=== PATIENT | female | born 1950 | race American Indian/Alaskan Native ===

== ENCOUNTER 2019-11-11 20:18 | Observation (INO) | payer MEDICARE ==
--- NOTE | 2019-11-11 20:52 | Emergency Department Report ---
ED Shortness of Breath HPI - General Chief Complaint: Dyspnea/Respdistress Stated Complaint: SOB Time Seen by Provider: 11/11/19 20:30 Source: patient Mode of arrival: Ambulatory Limitations: No Limitations - History of Present Illness Initial Comments: Patient is a 69-year-old female that presents emergency room with complaints of shortness of breath. Patient states her shortness of breath started today. Patient states she is not having any chest pain. Patient states her shortness of breath is better with rest and worse with exertion. Patient states she is having difficulty catching her breath. Patient states she does smoke. They states she smokes 1 pack/day. Patient states that she does not have a history of COPD or CHF but has a history of asthma. Patient states she has had open heart surgery for a bypass. Patient denies fever chills. Patient complains of mild cough. Patient complains of mild wheezing. Patient denies recent travel. Patient denies recent international travel. Patient denies exposure to the novel coronavirus. Patient denies sick contacts. Patient denies fever and chills. Patient denies diarrhea. Patient denies coming in contact with anybody with symptoms of the novel coronavirus. MD Complaint: shortness of breath -: Sudden Severity: severe Consistency: constant Improves With: rest Worsens With: exertion, movement, inspiration Known History Of: asthma, diabetes Associated Symptoms: cough Treatments Prior to Arrival: none - Related Data Home Oxygen Therapy: No Allergies Allergy/AdvReac Type Severity Reaction Status Date / Time No Known Allergies Allergy Unverified 11/11/19 20:30 ED Review of Systems ROS: Stated complaint: SOB Other details as noted in HPI Constitutional: denies: chills, fever Eyes: denies: eye pain, eye discharge, vision change ENT: denies: ear pain, throat pain Respiratory: cough, shortness of breath, SOB with exertion, SOB at rest, wheezing Cardiovascular: denies: chest pain, palpitations Endocrine: no symptoms reported Gastrointestinal: denies: abdominal pain, nausea, diarrhea Genitourinary: denies: urgency, dysuria, discharge Musculoskeletal: denies: back pain, joint swelling, arthralgia Skin: denies: rash, lesions Neurological: denies: headache, weakness, paresthesias Psychiatric: denies: anxiety, depression Hematological/Lymphatic: denies: easy bleeding, easy bruising ED Past Medical Hx - Past Medical History Previous Medical History?: Yes Hx Hypertension: Yes Hx CVA: No Hx Congestive Heart Failure: No Hx Diabetes: Yes Hx Asthma: Yes - Surgical History Past Surgical History?: Yes Hx Open Heart Surgery: Yes - Family History Family history: no significant - Social History Smoking Status: Current Every Day Smoker Substance Use Type: None ED Physical Exam - General Limitations: No Limitations General appearance: alert, in distress - Head Head exam: Present: atraumatic, normocephalic - Eye Eye exam: Present: normal appearance - ENT ENT exam: Present: mucous membranes moist - Neck Neck exam: Present: normal inspection - Respiratory Respiratory exam: Present: respiratory distress, wheezes, decreased breath sounds - Cardiovascular Cardiovascular Exam: Present: regular rate, normal rhythm. Absent: systolic murmur, diastolic murmur, rubs, gallop - GI/Abdominal GI/Abdominal exam: Present: soft, normal bowel sounds - Extremities Exam Extremities exam: Present: normal inspection - Back Exam Back exam: Present: normal inspection - Neurological Exam Neurological exam: Present: alert, oriented X3 - Psychiatric Psychiatric exam: Present: normal affect, normal mood - Skin Skin exam: Present: warm, dry, intact, normal color. Absent: rash ED Course Vital Signs 11/11/19 11/11/19 11/11/19 20:26 20:30 20:31 Temperature 98.4 F Pulse Rate 90 87 Pulse Rate [ Bilateral] Respiratory 21 20 Rate Respiratory Rate [Bilateral ] Blood Pressure 169/99 Blood Pressure 169/99 [Left] O2 Sat by Pulse 99 96 97 Oximetry 11/11/19 11/11/19 11/11/19 20:45 21:00 21:15 Temperature Pulse Rate 82 89 82 Pulse Rate [ Bilateral] Respiratory 20 22 21 Rate Respiratory Rate [Bilateral ] Blood Pressure 166/104 180/87 Blood Pressure [Left] O2 Sat by Pulse 95 94 95 Oximetry 11/11/19 11/11/19 11/11/19 21:30 21:37 21:46 Temperature Pulse Rate 82 62 Pulse Rate [ 66 Bilateral] Respiratory 16 21 Rate Respiratory 22 Rate [Bilateral ] Blood Pressure 168/66 157/74 Blood Pressure [Left] O2 Sat by Pulse 94 96 Oximetry - Reevaluation(s) Reevaluation #1: Patient states she is feeling better. Patient's wheezing has resolved. P atient's lung sounds are clear. Patient's stable on 2 L of oxygen. 11/11/19 21:28 Reevaluation #2: I discussed all results with patient. I discussed plan of care with patient. Patient agrees with plan of care and admission. Patient to be admitted to the hospitalist service. Patient states that she would like a Percocet for her lower back pain. Patient states she takes Percocet at home for her chronic back pain 11/11/19 22:28 - Consultations Consultation #1: Hospitalist consulted for admission. Hospitalist to admit patient. Bridge orders placed. 11/11/19 22:27 ED Medical Decision Making - Lab Data Result diagrams: 11/11/19 20:52 11/11/19 20:52 - EKG Data -: EKG Interpreted by Me EKG shows normal: sinus rhythm, axis, intervals, QRS complexes, ST-T waves Rate: normal - Radiology Data Radiology results: report reviewed, image reviewed CHEST 1 VIEW 11/11/2019 8:22 PM INDICATION / CLINICAL INFORMATION: Dyspnea. COMPARISON: None available. FINDINGS: SUPPORT DEVICES: None. HEART / MEDIASTINUM: Sternotomy and CABG. LUNGS / PLEURA: No significant pulmonary or pleural abnormality. No pneumothorax. ADDITIONAL FINDINGS: No significant additional findings. IMPRESSION: 1. No acute findings. - Medical Decision Making Patient is a 69-year-old female that presents emergency room complaints of shortness of breath. Patient has a history of asthma and smoking. Patient on initial exam found to have respiratory distress along with wheezing. Patient given duo nebs magnesium and Solu-Medrol and her respiratory status improved. Patient also found to be hypoxic and placed on oxygen and her O2 improved. Patient's initial oxygen saturation was 92%. Patient at 97-98% with 2 L of oxygen. Patient's labs unremarkable. Patient's chest x-ray is negative for acute findings or pneumonia. Patient's EKG is negative for acute finding. - Differential Diagnosis Asthma exacerbation, status asthmaticus, COPD, ACS, CHF Critical Care Time: Yes Critical care time in (mins) excluding proc time.: 35 Critical care attestation.: If time is entered above; I have spent that time in minutes in the direct care of this critically ill patient, excluding procedure time. Critical Care Time: 35 minutes ED Disposition Clinical Impression: SOB (shortness of breath), Hypoxia Status asthmaticus Qualifiers: Asthma severity: severe Asthma persistence: unspecified Qualified Code(s): J45.902 - Unspecified asthma with status asthmaticus Disposition: 09 OP ADMIT IP TO THIS HOSP Is pt being admited?: Yes Does the pt Need Aspirin: No Condition: Critical Time of Disposition: 22:27
[2019-11-11] MEDS ORDERED: IPRATROPIUM/ALBUTEROL SULFATE 3 ML AMPUL.NEB IH ONE (20:57)
[2019-11-11] MEDS ORDERED: methylPREDNISolone Sod Succinate 125 MG/2 ML INJ IV ONE (20:57)
[2019-11-11] MEDS ORDERED: MAGNESIUM SULFATE 2 GM/50 ML BAG IV ONE (20:58)
[2019-11-11 21:12] LABS: Basophils # (Auto) 0.1 K/mm3 (0.0-0.1); Basophils % (Auto) 1.6 % (0.0-1.8); Eosinophils # (Auto) 0.4 K/mm3 (0.0-0.4); Eosinophils % (Auto) 4.6 % (0.0-4.3); Hematocrit 36.6 % (30.3-42.9); Hemoglobin 11.9 gm/dl (10.1-14.3); Lymphocytes % (Auto) 36.5 % (13.4-35.0); Mean Corpuscular HGB Conc 33 % (30-34); Mean Corpuscular Volume 81 fl (79-97); Monocytes # (Auto) 0.5 K/mm3 (0.0-0.8); Monocytes % (Auto) 6.4 % (0.0-7.3); Platelet Count 245 K/mm3 (140-440); Red Blood Count 4.52 M/mm3 (3.65-5.03); Red Cell Distribution Width 15.5 % (13.2-15.2)
--- NOTE | 2019-11-11 21:29 | XRay Report ---
CHEST 1 VIEW 11/11/2019 8:22 PM INDICATION / CLINICAL INFORMATION: Dyspnea. COMPARISON: None available. FINDINGS: SUPPORT DEVICES: None. HEART / MEDIASTINUM: Sternotomy and CABG. LUNGS / PLEURA: No significant pulmonary or pleural abnormality. No pneumothorax. ADDITIONAL FINDINGS: No significant additional findings. IMPRESSION: 1. No acute findings. Signer Name: Tavon Meléndez MD Signed: 11/11/2019 9:25 PM Workstation Name: [id number]
[2019-11-11 21:37] LABS: Alanine Aminotransferase 10 units/L (7-56); Albumin 3.9 g/dL (3.9-5); BUN/Creatinine Ratio 18; Blood Urea Nitrogen 14 mg/dL (7-17); Calcium 9.4 mg/dL (8.4-10.2); Hemolysis Index 2
[2019-11-11] MEDS ORDERED: oxyCODONE /ACETAMINOPHEN 5-325MG TAB PO ONE (22:32)
[2019-11-11] MEDS ORDERED: DEXTROSE 50% IN WATER (25GM) 50 ML SYRINGE IV PRN (23:22)
[2019-11-11] MEDS ORDERED: ONDANSETRON 4 MG/2 ML INJ IV PRN (23:22)
[2019-11-11] MEDS ORDERED: ACETAMINOPHEN 325 MG TAB PO PRN (23:22)
[2019-11-11] MEDS ORDERED: MAGNESIUM HYDROXIDE (MOM) ORAL LIQD UDC PO PRN (23:22)
--- NOTE | 2019-11-11 23:32 | History and Physical Report ---
History of Present Illness Date of examination: 11/11/19 Date of admission: 11/11/19 22:42 Chief complaint: Shortness of breath History of present illness: Patient is a 69-year-old female with known history of asthma, hypertension, diabetes mellitus and also a current everyday smoker presenting to the emergency room today complaining of shortness of breath. Shortness of breath was said to started earlier today. She denies any chest pain, no nausea vomiting, no headache or dizziness, no hematuria or dysuria. She denies any sick contacts and no recent travel. Shortness of breath is worse on exertion and gets better on resting. Upon arrival in the emergency room she was found to be hypoxic and placed on oxygen by nasal cannula with significant improvement. She was also found to be wheezing. She had nebulizing treatment with some improvement. Past History Past Medical History: diabetes, hypertension, other (Asthma) Past Surgical History: Other (Open heart surgery) Social history: smoking (Current daily smoker). denies: alcohol abuse, IV drug use Family history: no significant family history Medications and Allergies Allergies Allergy/AdvReac Type Severity Reaction Status Date / Time No Known Allergies Allergy Verified 11/11/19 23:36 Home Medications Medication Instructions Recorded Confirmed Last Taken Type Albuterol INH(or & Nicu Only) 2 puff IH QID PRN 11/11/19 11/11/19 Unknown History [ProAir HFA Inhaler] Apixaban [Eliquis] 5 mg PO BID 11/11/19 11/11/19 Unknown History AtorvaSTATin [Lipitor] 20 mg PO QHS 11/11/19 11/11/19 Unknown History Gabapentin 300 mg PO BID 11/11/19 11/11/19 Unknown History Losartan/Hydrochlorothiazide 1 each PO BID 11/11/19 11/11/19 Unknown History [Losartan-Hctz 100-25 mg Tab] Metformin HCl [metFORMIN] 1,000 mg PO BID 11/11/19 11/11/19 Unknown History Oxycodone HCl/Acetaminophen 1 each PO Q6HR PRN 11/11/19 11/11/19 Unknown History [Percocet 10/325 mg] Review of Systems Constitutional: no fever, no chills Ears, nose, mouth and throat: no nasal congestion, no sore throat Cardiovascular: no chest pain, no palpitations Respiratory: cough, shortness of breath Gastrointestinal: no abdominal pain, no nausea, no vomiting, no diarrhea Genitourinary Female: no flank pain, no dysuria, no hematuria Musculoskeletal: no neck pain, no low back pain Integumentary: no rash, no pruritis Neurological: no syncope, no headaches, no confusion Exam - Constitutional Vitals: Temp Pulse Resp BP Pulse Ox 98.4 F 75 17 189/73 98 11/11/19 20:31 11/11/19 22:46 11/11/19 22:46 11/11/19 22:46 11/11/19 22:46 General appearance: Present: no acute distress, well-nourished - EENT Eyes: Present: PERRL, EOM intact ENT: hearing intact, clear oral mucosa, dentition normal - Neck Neck: Present: supple, normal ROM - Respiratory Respiratory effort: normal Respiratory: bilateral: CTA - Cardiovascular Rhythm: regular Heart Sounds: Present: S1 & S2. Absent: gallop, systolic murmur, diastolic murmur, rub - Extremities Extremities: no ischemia, pulses intact, pulses symmetrical, No edema, Full ROM Peripheral Pulses: within normal limits - Abdominal General gastrointestinal: Present: soft, non-tender, non-distended, normal bowel sounds - Integumentary Integumentary: Present: clear, warm, dry. Absent: jaundice - Musculoskeletal Musculoskeletal: strength equal bilaterally - Psychiatric Psychiatric: appropriate mood/affect, intact judgment & insight, memory intact, cooperative HEART Score - HEART Score Troponin: Troponin T < 0.010 ng/mL (0.00-0.029) 11/11/19 20:52 Results - Labs CBC & Chem 7: 11/12/19 04:14 11/12/19 04:14 Labs: Abnormal lab results 11/11/19 11/11/19 Range/Units 20:52 20:52 MCH 26 L (28-32) pg RDW 15.5 H (13.2-15.2) % Lymph % (Auto) 36.5 H (13.4-35.0) % Eos % (Auto) 4.6 H (0.0-4.3) % Glucose 135 H (65-100) mg/dL Assessment and Plan - Patient Problems (1) Status asthmaticus Current Visit: Yes Status: Acute Qualifiers: Asthma severity: severe Asthma persistence: unspecified Qualified Code(s): J45.902 - Unspecified asthma with status asthmaticus Plan to address problem: Patient placed on nebulizing treatments and IV steroids. (2) Hypoxia Current Visit: Yes Status: Acute Plan to address problem: Will keep on oxygen and keep oxygen saturation greater or equal to 92%. (3) History of coronary artery disease Current Visit: Yes Status: Acute Plan to address problem: She has had bypass surgery in the past. Stable. (4) DVT prophylaxis Current Visit: Yes Status: Acute Plan to address problem: Patient placed on subcutaneous Lovenox. (5) Full code status Current Visit: Yes Status: Acute
[2019-11-11] MEDS ORDERED: hydrALAZINE 20 MG/1 ML INJ IV ONE (23:34)
[2019-11-11] MEDS ORDERED: hydrALAZINE 20 MG/1 ML INJ IV PRN (23:36)
[2019-11-11] MEDS ORDERED: hydrALAZINE 20 MG/1 ML INJ ONE (23:38)
[2019-11-12] MEDS: IPRATROPIUM/ALBUTEROL SULFATE 3 ML AMPUL.NEB IH SCH ×4 (05:03→20:39)
[2019-11-12 05:06] LABS: Basophils % (Auto) 0.4 % (0.0-1.8); Hematocrit 36.5 % (30.3-42.9); Lymphocytes # (Auto) 0.9 K/mm3 (1.2-5.4); Lymphocytes % (Auto) 12.2 % (13.4-35.0); Mean Corpuscular HGB Conc 33 % (30-34); Mean Corpuscular Volume 81 fl (79-97); Monocytes # (Auto) 0.1 K/mm3 (0.0-0.8); Monocytes % (Auto) 0.9 % (0.0-7.3); Platelet Count 252 K/mm3 (140-440); Red Blood Count 4.54 M/mm3 (3.65-5.03); Red Cell Distribution Width 15.1 % (13.2-15.2)
[2019-11-12 05:16] LABS: INR 1.46 (0.87-1.13)
[2019-11-12 05:23] LABS: BUN/Creatinine Ratio 23; Blood Urea Nitrogen 16 mg/dL (7-17); Calcium 9.6 mg/dL (8.4-10.2); Hemolysis Index 1
[2019-11-12] MEDS: methylPREDNISolone Sod Succinate 40 MG/1 ML INJ IV SCH ×2 (06:09→14:21)
[2019-11-12] MEDS: INSULIN LISPRO 100 UNIT/ML SUB-Q SCH ×4 (08:48→16:30)
[2019-11-12 08:56] VITALS: BP 150/73
[2019-11-12] MEDS ORDERED: oxyCODONE /ACETAMINOPHEN 5-325MG TAB PO PRN (14:00)
--- NOTE | 2019-11-12 16:11 | Discharge Summary ---
Providers - Providers Date of Admission: 11/11/19 22:42 Date of discharge: 11/12/19 Attending physician: MELISSA CHAVEZ Hospitalization Condition: Critical Hospital course: Patient is a 69-year-old female with known history of asthma, hypertension, diabetes mellitus and also a current everyday smoker presenting to the emergency room today complaining of shortness of breath. Upon arrival in the emergency room she was found to be hypoxic and placed on oxygen by nasal cannula with significant improvement. She was also found to be wheezing. She had nebulizing treatment with some improvement. Patient was admitted to medical floor with scheduled nebs, iv abx, iv steroids and supplemental O2 to keep O2 sat at 94%. CXR showed no infiltrates. Patients symptom improved with medical management. Patient was then discharged home in stable condition with outpt f/u. Discharge diagnosis: Status asthmaticus/acute exacerbation of asthma Acute hypoxemia due to acute asthma, resolved History of coronary artery disease with CABG Diabetes mellitus type 2 Hypertension Tobacco abuse DVT prophylaxis Full CODE STATUS Physical exam: GENERAL: well-developed and well-nourished -[place] elderly female lying on bed appeared to be in no discomfort. HEENT: Normocephalic. Atraumatic. No conjunctival congestion or icterus. Patient has moist mucous membranes. NECK: Supple. Trachea midline. CHEST/LUNGS: Clear to auscultated bilaterally, breathing nonlabored. No wheezes crackles or rhonchi. HEART/CARDIOVASCULAR: Regular in rate and rhythm. S1 and S2 positive. ABDOMEN: Abdomen is soft, nontender. Patient has normal bowel sounds. SKIN: There is no rash. Warm and dry. NEURO: No focal motor deficit. Follows command. MUSCULOSKELETAL: No joint effusion or tenderness. EXTRIMITY: No edema, no cyanosis or clubbing. PSYCH: Cooperative. Disposition: DC-01 TO HOME OR SELFCARE Time spent for discharge: 34 minutes Core Measure Documentation - Palliative Care Palliative Care/ Comfort Measures: Not Applicable - Core Measures Any of the following diagnoses?: none Exam - Constitutional Vitals: Temp Pulse Resp BP Pulse Ox 98.5 F 82 20 150/73 95 11/12/19 07:47 11/12/19 07:47 11/12/19 07:47 11/12/19 07:47 11/12/19 07:47 Plan Activity: advance as tolerated Weight Bearing Status: Non-Weight Bearing Diet: low fat, low salt, diabetic Follow up with: CATE MENDENHALL [Other] - 7 Days Prescriptions: Prednisone [predniSONE 5 mg (6-Day Pack, 21 Tabs)] 5 mg PO .TAPER #1 tab.ds.pk Albuterol INH(or & Nicu Only) [ProAir HFA Inhaler] 2 puff IH QID PRN #1 PRN Reason: Shortness Of Breath Azithromycin [Zithromax Z-MERLIN] 0 mg PO DAILY #6 tab
[2019-11-12] MEDS ORDERED: ENOXAPARIN 40 MG/0.4 ML INJ SUB-Q SCH (22:00)
== END 2019-11-12 21:01 | disposition home or self-care (01) ==
LOC: ED 20:18 → 4A 22:42
PROVIDERS: ADMIT Internal Medicine Geriatric Medicine; ATTEND Internal Medicine
DX: J45.902 Unspecified asthma with status asthmaticus (principal); R09.02 Hypoxemia; I25.10 Atherosclerotic heart disease of native coronary artery without angina pectoris; I10 Essential (primary) hypertension; E11.9 Type 2 diabetes mellitus without complications; F17.200 Nicotine dependence, unspecified, uncomplicated; Z79.01 Long term (current) use of anticoagulants; Z79.84 Long term (current) use of oral hypoglycemic drugs; Z79.899 Other long term (current) drug therapy; Z71.6 Tobacco abuse counseling
CPT/HCPCS: 36415; 71045; 80048; 80053; 82550; 82553; 82962; 84484; 85025; 85610; 87641; 93005; 94640; 94644; 94760; 96365; 96375; 96376; 99291; 99406; G0378; J0360; J2920; J2930; J3475